=== PATIENT | female | born 1940 | race African-American/Black ===

== ENCOUNTER 2016-05-19 19:45 | Inpatient (IN) | payer MEDICARE ==
[~2016-05-19] VITALS: Ht 157.5 cm; Wt 50.1 kg
[2016-05-19] MEDS ORDERED: SODIUM CHLORIDE 0.9% 1,000 ML IV ONE (21:20)
[2016-05-19] MEDS ORDERED: MORPHINE SULFATE 4 MG/ML, 1ML ONE (21:29)
[2016-05-19] MEDS ORDERED: ONDANSETRON 2MG/ML, 2ML ONE (21:30)
[2016-05-19] MEDS ORDERED: ONDANSETRON 2MG/ML, 2ML IVPush ONE (21:30)
[2016-05-19] MEDS ORDERED: MORPHINE SULFATE 4 MG/ML, 1ML IVPush PRN ×2 (21:30→23:30)
[2016-05-19] MEDS ORDERED: SODIUM CHLORIDE FLUSH 10ML SYR IVF ONE (21:30)
[2016-05-19 22:02] LABS: HEMOGLOBIN 10.7 g/dL (11.7-16.4)
[2016-05-19 22:13] LABS: BLOOD UREA NITROGEN 20 mg/dL (7-18)
[2016-05-19 22:18] LABS: ASPARTATE AMINO TRANSFERASE 26 U/L (15-37)
[2016-05-19 22:19] LABS: IS PT STATUS REG ER OR PRE ER? YES
[2016-05-19] MEDS ORDERED: AMLO10TA2 PO (23:00)
[2016-05-19] MEDS ORDERED: AMIO200T42 PO (23:00)
[2016-05-19] MEDS ORDERED: FURO40TA6 PO (23:00)
[2016-05-19] MEDS ORDERED: ALLO100T30 PO (23:00)
[2016-05-19] MEDS ORDERED: ATOR40TA78 PO (23:00)
[2016-05-19] MEDS ORDERED: ENALAPRILAT 1.25 MG/ML, 2ML IVPush PRN (23:30)
[2016-05-19] MEDS ORDERED: NITROGLYCERIN 0.4 MG BOTTLE (25 TABS) SL PRN (23:30)
[2016-05-19] MEDS ORDERED: ONDANSETRON 2MG/ML, 2ML IVP PRN (23:30)
[2016-05-19] MEDS ORDERED: ACETAMINOPHEN 325 MG TABLET PO PRN (23:30)
[2016-05-19] MEDS ORDERED: BISACODYL 10 MG SUPP PR PRN (23:30)
[2016-05-19] MEDS ORDERED: POTASSIUM CHLORIDE 20 MEQ TAB.ER.PRT PO ONE (23:30)
[2016-05-19] MEDS ORDERED: POLYETHYLENE GLYCOL 17 GM PACKET PO PRN (23:30)
[2016-05-20] MEDS: HEPARIN 5,000 UNITS/ML, 1ML SQ SCH ×4 (00:21→23:13)
[2016-05-20] MEDS: SODIUM CHLORIDE FLUSH 10ML SYR IVF SCH ×3 (00:24→20:47)
[2016-05-20] MEDS: ATORVASTATIN 40 MG TABLET PO SCH ×2 (00:29→20:47)
[2016-05-20 00:32] VITALS: BP 149/69
[2016-05-20 02:10] VITALS: BP 148/68
[2016-05-20 05:03] LABS: BLOOD UREA NITROGEN 18 mg/dL (7-18); HEMOGLOBIN 9.8 g/dL (11.7-16.4)
[2016-05-20 05:09] LABS: ASPARTATE AMINO TRANSFERASE 22 U/L (15-37)
[2016-05-20 05:16] LABS: IS PT STATUS REG ER OR PRE ER? NO
[2016-05-20] MEDS: ASPIRIN 325 MG TABLET EC PO SCH (06:30)
[2016-05-20 07:47] VITALS: BP 124/67
[2016-05-20] MEDS ORDERED: REGADENOSON 0.4 MG/5 ML SYRINGE ONE (08:05)
[2016-05-20] MEDS: AMLODIPINE 5 MG TABLET PO SCH (08:28)
[2016-05-20] MEDS: AMIODARONE 200 MG TABLET PO SCH (08:28)
[2016-05-20] MEDS: POTASSIUM CHLORIDE 20 MEQ TAB.ER.PRT PO SCH (08:28)
[2016-05-20] MEDS: ALLOPURINOL 100 MG TABLET PO SCH (08:29)
[2016-05-20] MEDS: SENNA/DOCUSATE TABLET PO SCH (08:31)
[2016-05-20] MEDS ORDERED: FUROSEMIDE 40 MG TABLET PO SCH (09:00)
[2016-05-20] MEDS: SODIUM CHLORIDE 0.9% 1,000 ML IV SCH ×2 (10:46→20:43)
[2016-05-20 13:40] VITALS: BP 130/74
[2016-05-20 14:40] LABS: IS PT STATUS REG ER OR PRE ER? NO
[2016-05-20 18:42] VITALS: BP 140/71
[2016-05-21 02:00] VITALS: BP 108/57
[2016-05-21 05:33] LABS: HEMOGLOBIN 10.5 g/dL (11.7-16.4)
[2016-05-21 05:39] LABS: BLOOD UREA NITROGEN 18 mg/dL (7-18)
[2016-05-21] MEDS: ASPIRIN 325 MG TABLET EC PO SCH (06:21)
[2016-05-21] MEDS: SODIUM CHLORIDE 0.9% 1,000 ML IV SCH (06:21)
[2016-05-21 07:31] VITALS: BP 146/74
[2016-05-21] MEDS: HEPARIN 5,000 UNITS/ML, 1ML SQ SCH (09:44)
[2016-05-21] MEDS: SODIUM CHLORIDE FLUSH 10ML SYR IVF SCH (09:45)
[2016-05-21] MEDS: ALLOPURINOL 100 MG TABLET PO SCH (09:45)
[2016-05-21] MEDS: AMIODARONE 200 MG TABLET PO SCH (09:45)
[2016-05-21] MEDS: POTASSIUM CHLORIDE 20 MEQ TAB.ER.PRT PO SCH (09:45)
[2016-05-21] MEDS: AMLODIPINE 5 MG TABLET PO SCH (09:45)
[2016-05-21] MEDS: SENNA/DOCUSATE TABLET PO SCH (09:46)
[2016-05-21] MEDS ORDERED: ASPI-621 PO (11:47)
[2016-05-21 14:22] VITALS: BP 148/64
== END 2016-05-21 14:50 | disposition home or self-care (01) | DRG 292 ==
LOC: ED 22:58 → EDIP 23:08 → 5SO 23:54 → DCLOUNGE 05-21 14:37
PROVIDERS: ADMIT Internal Medicine; ATTEND Internal Medicine
DX: I13.0 Hypertensive heart and chronic kidney disease with heart failure and stage 1 through stage 4 chronic kidney disease, or unspecified chronic kidney disease (principal); Q61.3 Polycystic kidney, unspecified; I50.22 Chronic systolic (congestive) heart failure; I25.119 Atherosclerotic heart disease of native coronary artery with unspecified angina pectoris; R07.89 Other chest pain; D72.829 Elevated white blood cell count, unspecified; E87.5 Hyperkalemia; I45.6 Pre-excitation syndrome; D57.3 Sickle-cell trait; E78.5 Hyperlipidemia, unspecified; M10.9 Gout, unspecified; F12.90 Cannabis use, unspecified, uncomplicated; N18.9 Chronic kidney disease, unspecified; E87.6 Hypokalemia; Z88.5 Allergy status to narcotic agent; Z95.0 Presence of cardiac pacemaker; Z88.0 Allergy status to penicillin
CPT/HCPCS: 36415; 71010; 76770; 78452; 80048; 80053; 81003; 82570; 83735; 83880; 83935; 84156; 84300; 84439; 84443; 84484; 85025; 85610; 85730; 87205; 93005; 93017; 96374; 96375; J1644; J2405; J2785; A9502; C9898; J7030